=== PATIENT | male | born 1955 | race Hispanic/Latino ===

== ENCOUNTER 2024-12-10 13:01 | Emergency (ER) | payer MEDICARE ==
[~2024-12-10] VITALS: Ht 160 cm; Wt 69.4 kg
[2024-12-10] MEDS ORDERED: DOXYCYCLINE HY100 MG PO (16:03)
[2024-12-10] MEDS ORDERED: KEFLEX125 MG/5 M PO (16:03)
[2024-12-10 17:07] VITALS: PULSE 77; RESP 16; TEMP 98; O2SAT 99
[2024-12-10] MEDS ORDERED: ULTRAM 50MG50 MG PO (17:08)
== END 2024-12-10 17:12 | disposition home or self-care (01) ==
LOC: ER 14:43
DX: M79.672 Pain in left foot (principal); L03.116 Cellulitis of left lower limb; I10 Essential (primary) hypertension; E11.9 Type 2 diabetes mellitus without complications; E78.5 Hyperlipidemia, unspecified; F17.210 Nicotine dependence, cigarettes, uncomplicated
CPT/HCPCS: 99283